=== PATIENT | male | born 1945 | race Caucasian/White ===

== ENCOUNTER 2018-08-01 01:02 | Emergency (ER) | payer MEDICARE, OTHER ==
[~2018-08-01] VITALS: Ht 177.8 cm; Wt 136.1 kg
[2018-08-01] MEDS ORDERED: EPINEPHrine HCL 1 MG/10 ML SYRG IV ONE (01:03)
[2018-08-01] MEDS ORDERED: SODIUM BICARBONATE 8.4% INJ 50ML SYRINGE IV ONE (01:03)
== END 2018-08-01 05:56 | disposition expired ==
LOC: ER 01:02 → EDBD 01:02 → ER 05:56
DX: I46.9 Cardiac arrest, cause unspecified (principal); I50.9 Heart failure, unspecified; I25.2 Old myocardial infarction
CPT/HCPCS: 92950; 99285; J0171